=== PATIENT | female | born 1980 | race Two or more races ===

== ENCOUNTER 2024-01-09 18:43 | Emergency (ER) | payer SELFPAY ==
[~2024-01-09] VITALS: Ht 147.3 cm; Wt 57.9 kg
[2024-01-09 19:34] VITALS: BP 125/90; PULSE 85; RESP 18; TEMP 97.3
[2024-01-09 20:19] VITALS: O2SAT 100
== END 2024-01-09 20:30 | disposition home or self-care (01) ==
LOC: ER 18:43
DX: S00.03XA Contusion of scalp, initial encounter (principal); S00.31XA Abrasion of nose, initial encounter; F79 Unspecified intellectual disabilities; F32.9 Major depressive disorder, single episode, unspecified; E78.5 Hyperlipidemia, unspecified; W18.49XA Other slipping, tripping and stumbling without falling, initial encounter; Y93.89 Activity, other specified; Y92.89 Other specified places as the place of occurrence of the external cause; Y99.8 Other external cause status